=== PATIENT | female | born 1980 | race Caucasian/White ===

== ENCOUNTER 2017-02-17 08:44 | Day surgery (SDC) | payer OTHER ==
[~2017-02-17] VITALS: Ht 165.1 cm; Wt 74.9 kg
[2017-02-17 09:26] VITALS: BP 114/82; PULSE 97; TEMP 97.9
[2017-02-17] MEDS ORDERED: MOTRIN 800800 MG/TAB PO (09:37)
[2017-02-17] MEDS ORDERED: DEPO-PROVE150 MG/1 M IM (09:38)
[2017-02-17 11:25] VITALS: BP 118/70; PULSE 87
[2017-02-17 11:45] VITALS: BP 107/77; PULSE 83
[2017-02-17 12:00] VITALS: BP 109/77; PULSE 78
[2017-02-17 12:15] VITALS: BP 106/67; PULSE 69
== END 2017-02-17 12:25 | disposition home or self-care (01) ==
LOC: SDCO 08:44
DX: K29.30 Chronic superficial gastritis without bleeding (principal); K29.80 Duodenitis without bleeding; K59.00 Constipation, unspecified; K30 Functional dyspepsia; K80.20 Calculus of gallbladder without cholecystitis without obstruction; R19.7 Diarrhea, unspecified; F17.200 Nicotine dependence, unspecified, uncomplicated
CPT/HCPCS: OP; J2250; J2405; J3010; J7030

== ENCOUNTER → 2017-03-13 | Outpatient (CLI) | payer OTHER ==
[~2017-03-13] MED LIST: COLACE 100100 MG/CAP PO; DEPO-PROVE150 MG/1 M IM; MOTRIN 600600 MG/TAB PO; MOTRIN 800800 MG/TAB PO; PERCOCET 325 MG1 TA2 PO; PROTONIX 40MG T40 MG PO; TYLENOL PM EXTR1 TA1 PO
== END ==
LOC: COL.RAD 07:02
DX: K82.9 Disease of gallbladder, unspecified (principal); K76.89 Other specified diseases of liver

== ENCOUNTER 2017-03-16 10:23 | Day surgery (SDC) | payer OTHER ==
[~2017-03-16] VITALS: Ht 165.1 cm; Wt 75.4 kg
[~2017-03-16 10:23] MED LIST changes: -COLACE 100100 MG/CAP PO; -MOTRIN 600600 MG/TAB PO; -PERCOCET 325 MG1 TA2 PO; -PROTONIX 40MG T40 MG PO; -TYLENOL PM EXTR1 TA1 PO
[2017-03-16 11:36] VITALS: BP 113/79; PULSE 97; TEMP 98
[2017-03-16] MEDS ORDERED: PROTONIX 40MG T40 MG PO (11:53)
[2017-03-16] MEDS ORDERED: TYLENOL PM EXTR1 TA1 PO (11:55)
[2017-03-16] MEDS ORDERED: PERCOCET 325 MG1 TA2 PO (14:15)
[2017-03-16] MEDS ORDERED: COLACE 100100 MG/CAP PO (14:16)
[2017-03-16] MEDS ORDERED: MOTRIN 600600 MG/TAB PO (14:16)
[2017-03-16 14:18] VITALS: BP 118/71; PULSE 99; TEMP 98.5
[2017-03-16 14:30] VITALS: BP 120/67; PULSE 87
[2017-03-16 14:45] VITALS: BP 117/82; PULSE 92
[2017-03-16 15:00] VITALS: BP 112/67; PULSE 93
== END 2017-03-16 15:30 | disposition home or self-care (01) ==
LOC: SDCO 10:23
DX: K81.1 Chronic cholecystitis (principal); K58.0 Irritable bowel syndrome with diarrhea; F17.210 Nicotine dependence, cigarettes, uncomplicated; D64.9 Anemia, unspecified; R51 Headache
CPT/HCPCS: J0694; J1100; J1170; J2175; J2405; J2704; J2765; J3010; J7120; Q9967